=== PATIENT | female | born 1970 | race Caucasian/White ===

== ENCOUNTER → 2016-12-02 | Day surgery (SDC) | payer OTHER ==
[~2016-12-02] MED LIST: CYCL-36 PO; DICL75 PO; KETOROLAC TROMETHAMINE 30 MG/ML (IVP) VIAL IV PUSH ONE; LACTATED RINGER'S 1000 ML INJ 1,000 ML ONE; MIDAZOLAM HCL 2 MG/2 ML VIAL ONE; ONDANSETRON HCL 4 MG/2 ML VIAL IV PUSH ONE; PROPOFOL 200 MG/20 ML AMP IV ONE; Z.0.NO CURRENT MEDS; ceFAZolin 2 GM PREMIX 50 ML ONE
--- NOTE | 2016-12-03 07:21 | MP ---
cc: AMBER GREGORY M.D., JOSE R. M.D. DATE OF SURGERY 12/02/2016 PREOPERATIVE DIAGNOSIS Patient with perimenopausal menorrhagia. PROCEDURE Diagnostic hysteroscopy, fractional D&C, polypectomy. Endometrial ablation with NovaSure device. POSTOPERATIVE DIAGNOSES 1. Patient with perimenopausal menorrhagia. 2. Small endometrial polyp. SURGEON MD Joshua ANESTHESIA General LMA ESTIMATED BLOOD LOSS Minimal. DRAINS None. OPERATIVE FINDINGS The patient had anteverted uterus. Measurements of the cavity were 9.0 and 3.2 in width. The endometrial cavity was remarkable for a small polyp, approximately 1 x 2 cm. PROCEDURE DESCRIPTION The patient was taken to the operating room. She received prophylactic antibiotics, given Ancef 2 grams IV. She underwent general anesthesia with LMA placement, was carefully positioned in dorsal lithotomy position using candy-cane stirrups with sequentials placed on the lower extremities for VTE prophylaxis. She was prepped and draped. A time-out was again conducted and agreed by all present in the room. After the patient was prepped and draped, she was examined. Findings were significant for the above-documented anatomic findings. The cervical canal was curetted and sent as endocervical curettings. The uterine sound was placed gently anteverted to 9 cm. The cervix was then dilated. A 5-mm rigid hysteroscope was used to examined the cavity. A polyp was identified and polyp forceps was used to avulse the polyp. Curettage of the endometrial cavity was then performed and sent as endometrial tissue. The endometrial ablation was then conducted without incident. The generator set measured 103 ramos. After completion of the NovaSure examination with the hysteroscope, again demonstrated electrodesiccation of the cavity. No active bleeding was noted. The tenaculum site was oozing consistently and the use of a Bovie was used to cauterize the tenaculum site anteriorly to secure hemostasis. After completion of the case, final count was correct. The patient was stable. There was no active bleeding. She was taken to the recovery room and extubated on room air. MD HOWARD Lauren/MELITON /8:01 AM 7:12 AM
== END | disposition home or self-care (01) ==
LOC: ESDC 06:33
PROVIDERS: ATTEND Obstetrics & Gynecology
DX: N92.0 Excessive and frequent menstruation with regular cycle (principal); N84.0 Polyp of corpus uteri
CPT/HCPCS: 00952; 58563; 88305; J0690; J1885; J2250; J2405; J3010; J7120